=== PATIENT | female | born 1960 | race Caucasian/White ===

== ENCOUNTER 2020-03-04 06:36 | Inpatient (IN) | payer OTHER, SELFPAY ==
[2020-03-04] VITALS (10 sets, daily range): BP systolic 128–173; BP diastolic 60–84; PULSE 64–107; RESP 15–30; TEMP 36.6–36.9; O2SAT 93–100
--- NOTE | 2020-03-04 06:46 | PC.NURSE ---
Patient states she is having pain the back of her head at 6/10. Patient states she fell yesterday and that she fell two times. Patient states she hit her head when she fell. Patient states she does have a history of falls in the past.
--- NOTE | 2020-03-04 06:51 | W.ED.WEAKNES ---
HPI - Weakness General: Chief complaint: Weakness Stated complaint: FELL TWICE Time Seen by Provider: 03/04/20 06:51 History of Present Illness: HPI Narrative: 59-year-old female brought to the emergency room with a complaint of weakness. She has had quite a bit of dizziness lately she came in today because she had fallen she fell and hit the back of her head she thought she blacked out for a short period of time she does not take any blood thinners. The dizziness takes a form of being uneasy and unsteady on her feet she does not have a true vertiginous-like episode. This is been going on for intermittently for a few weeks. She also noted she had black stools. She denies any frankly bloody stools no hematemesis no previous history of GI bleed. MD Complaint: generalized weakness and difficulty walking Onset (ago): week(s) Duration: intermittent Severity: moderate Relieving factors: none Exacerbating factors: exertion Context: trauma/injury Associated symptoms: Reports easy bruising and nausea; Denies chest pain, chills, dark stools, dysuria or fever(s) Review of Systems Const: Denies: fever, chills, body aches, change in appetite, fatigue or malaise ENMT: Denies: throat pain, ear pain, nasal discharge or nasal congestion Card: Denies: chest pain, edema, shortness of breath on exertion or shortness of breath when lying down Resp: Denies: shortness of breath, productive cough or non-productive cough GI: Reports: nausea; Denies: black tarry stool : Denies: flank pain, difficulty urinating, painful urination, urinary frequency or urinary urgency Skin/Breast: Denies: rash or itching Guille/Lymph: Reports: easy bruising [facility] ED PFSH: Medical History Alcohol use disorder, moderate, in controlled environment, dependence Anxiety disorder Family History Mother , in her mid 50s Cancer Nonalcoholic liver cancer due to hepatitis Tuberculosis Father , at age 95 from old age No problems noted. Social History Smoking and tobacco status: former smoker Second hand smoke exposure: Yes Alcohol intake: current Desire information about alcohol rehabilitation?: No Counseling given: Yes Substance/Drug Use: never Lives independently: Yes Household members: spouse Marital status: Number of children: 3 Number of grandchildren: 2 Physical Exam Const: COMMON NORMALS: no apparent distress GENERAL APPEARANCE: cooperative and comfortable ORIENTATION/CONSCIOUSNESS: Yes awake, Yes oriented to person, Yes oriented to place and Yes oriented to time HENMT: COMMON NORMALS: normocephalic, head/scalp atraumatic, hearing grossly normal bilaterally, external ears normal, EAC's normal, TM's normal bilaterally, nasal mucous membranes and turbinates normal, moist oral mucous membranes and oropharynx normal HEAD & SCALP: normocephalic and atraumatic NOSE: nasal mucous membranes and turbinates normal EXTERNAL EAR: Yes external ears normal EXTERNAL AUDITORY CANAL: EAC's normal TYMPANIC MEMBRANE: TM's normal bilaterally Eye: COMMON NORMALS: PERRL, EOMs intact bilaterally, conjunctivae normal and no scleral icterus CONJUNCTIVA: Yes conjunctivae normal PUPIL: Yes PERRL Neck/C-Spine: COMMON NORMALS: full ROM, no lymphadenopathy, supple and no JVD Lymph: LYMPHATIC: no lymphadenopathy noted and no lymphedema noted Resp: COMMON NORMALS: normal respiratory effort, no retractions, no use of accessory muscles and clear to auscultation bilaterally AUSCULTATION: clear to auscultation bilaterally Cardio: COMMON NORMALS: no JVD, regular rate, regular rhythm and no murmurs RATE: regular rate RHYTHM: regular rhythm GI: COMMON NORMALS: soft to palpation and no hepatosplenomegaly AUSCULTATION: Yes normoactive bowel sounds PALPATION: Yes soft, No tender, No guarding and Yes no hepatosplenomegaly RECTAL EXAM: normal sphincter tone and heme positive stool 3+ Extremity: COMMON NORMALS: normal to inspection, normal capillary refill, no clubbing, cyanosis or edema, no calf tenderness and no pedal edema Neuro: SENSORIUM/ORIENTATION: Yes oriented to person, Yes oriented to place and Yes oriented to time Skin: COMMON NORMALS: no rashes or lesions noted GENERAL SKIN EXAM: no rashes or lesions noted Course Vital Signs: Vital signs: Vital Signs Temperature 98.3 F 03/05/20 07:12 Pulse Rate 70 03/05/20 07:29 Respiratory Rate 18 03/05/20 07:12 Blood Pressure 149/70 03/05/20 07:12 Pulse Oximetry 94 03/05/20 07:29 MDM - Weakness MDM Narrative: Medical decision making narrative: Blood alcohol 72. She is previously much higher alcohols and think a lot of her lab abnormalities are related to the alcohol ingestion. Were going to go ahead and admit her. I am concerned with her hemoglobin drops went from 13 5 down to 10 4 she has frankly melanotic stools and may have a continuing upper GI bleed. Discussed with Dr. Ni and. Lab Data: Labs: Lab Results 03/04/20 03/04/20 03/04/20 Range/Units 07:14 07:14 07:14 WBC 5.8 (4.0-10.0) 10^3/ uL RBC 2.99 L (4.1-5.3) 10^6/u L Hgb 10.5 L (11.5-15.3) g/dL Hct 31.8 L (37.0-47.0) % MCV 106.4 H (81-99) fL MCH 35.1 H (28.0-34.0) pg MCHC 33.0 (30.0-36.0) g/dL RDW 13.7 (12.1-15.1) % Plt Count 122 L (130-400) 10^3/c mm MPV 10.0 (7.4-10.4) fL Neut % (Auto) 73.8 % Lymph % (Auto) 9.5 % [place] % (Auto) 13.5 % Eos % (Auto) 0.7 % Baso % (Auto) 1.6 % Neut # (Auto) 4.3 (1.8-7.7) 10^3/u L Lymph # (Auto) 0.6 L (0.8-4.8) 10^3/u L [place] # (Auto) 0.8 (0.2-0.9) 10^3/u L Eos # (Auto) 0.0 (0.0-0.8) 10^3/u L Baso # (Auto) 0.1 (0.0-0.1) 10^3/u L Nucleated RBC % (a uto) 0 % Nucleated RBCs # 0.0 /100WBC Sodium 136 (136-145) mmol/L Potassium 4.5 (3.5-5.1) mmol/L Chloride 91 L (98-107) mmol/L Carbon Dioxide 20 L (22-29) mmol/L Anion Gap 29.5 H (5-19) BUN 14 (8-23) mg/dL Creatinine 0.8 (0.5-0.9) mg/dL GFR Calculation 72.9 L (90-130) mL/min Glucose 103 (65-115) mg/dL Calculated Osmolal ity 278 L (285-295) mOsm/k g Lactate (0.5-2.2) mmol/L Calcium 9.9 (8.5-10.5) mg/dL Phosphorus (2.5-4.5) mg/dL Magnesium (1.7-2.3) mg/dL Total Bilirubin 1.4 H (0.15-1.2) mg/dL AST 268 H (0-32) U/L ALT 122 H (0-33) U/L Alkaline Phosphata se 182 H (35-105) IU/L Ammonia (11-51) umol/L Total Protein 7.7 (6.6-8.7) g/dL Albumin 4.5 (3.5-5.2) g/dL Globulin 3.2 (1.3-4.6) g/dL Lipase 72 H (13-60) U/L TSH (0.27-4.20) uIU/ mL Urine Color (Yellow) Urine Appearance (CLEAR) Urine pH (5-7) Ur Specific Gravit y (1.005-1.030) Urine Protein (Negative) Urine Glucose (UA) (Normal) Urine Ketones (Negative) Urine Blood (Negative) Urine Nitrate (Negative) Urine Bilirubin (NEGATIVE) Urine Urobilinogen (Negative) mg/dL Ur Leukocyte Rosina ase (Negative) Urine RBC (0-2) /hpf Urine WBC (0-5) /hpf Ur Squamous Epith Cells (0-5) Urine Bacteria (NONE) Hyaline Casts Urine Mucus Ethyl Alcohol 72 H (0-10) mg/dL Hepatitis A IgM Ab (Nonreactive) Hep Bs Antigen (Nonreactive) Hep Bs Antibody (0-8.5) Hep B Core Total A b (Nonreactive) Hepatitis C Antibo dy (Nonreactive) 03/04/20 03/04/20 03/04/20 Range/Units 07:14 07:56 09:13 WBC (4.0-10.0) 10^3/ uL RBC (4.1-5.3) 10^6/u L Hgb (11.5-15.3) g/dL Hct (37.0-47.0) % MCV (81-99) fL MCH (28.0-34.0) pg MCHC (30.0-36.0) g/dL RDW (12.1-15.1) % Plt Count (130-400) 10^3/c mm MPV (7.4-10.4) fL Neut % (Auto) % Lymph % (Auto) % [place] % (Auto) % Eos % (Auto) % Baso % (Auto) % Neut # (Auto) (1.8-7.7) 10^3/u L Lymph # (Auto) (0.8-4.8) 10^3/u L [place] # (Auto) (0.2-0.9) 10^3/u L Eos # (Auto) (0.0-0.8) 10^3/u L Baso # (Auto) (0.0-0.1) 10^3/u L Nucleated RBC % (a uto) % Nucleated RBCs # /100WBC Sodium (136-145) mmol/L Potassium (3.5-5.1) mmol/L Chloride (98-107) mmol/L Carbon Dioxide (22-29) mmol/L Anion Gap (5-19) BUN (8-23) mg/dL Creatinine (0.5-0.9) mg/dL GFR Calculation (90-130) mL/min Glucose (65-115) mg/dL Calculated Osmolal ity (285-295) mOsm/k g Lactate (0.5-2.2) mmol/L Calcium (8.5-10.5) mg/dL Phosphorus 4.2 (2.5-4.5) mg/dL Magnesium 2.4 H (1.7-2.3) mg/dL Total Bilirubin (0.15-1.2) mg/dL AST (0-32) U/L ALT (0-33) U/L Alkaline Phosphata se (35-105) IU/L Ammonia (11-51) umol/L Total Protein (6.6-8.7) g/dL Albumin (3.5-5.2) g/dL Globulin (1.3-4.6) g/dL Lipase (13-60) U/L TSH 2.49 (0.27-4.20) uIU/ mL Urine Color Dark yellow (Yellow) Urine Appearance Clear (CLEAR) Urine pH 5 (5-7) Ur Specific Gravit y 1.005 (1.005-1.030) Urine Protein Trace (Negative) Urine Glucose (UA) Norm (Normal) Urine Ketones 2+ H (Negative) Urine Blood 2+ H (Negative) Urine Nitrate Negative (Negative) Urine Bilirubin Neg (NEGATIVE) Urine Urobilinogen 1 H (Negative) mg/dL Ur Leukocyte Rosina ase Negative (Negative) Urine RBC Rare (0-2) /hpf Urine WBC 0-4 H (0-5) /hpf Ur Squamous Epith Cells 0-4 H (0-5) Urine Bacteria Trace (NONE) Hyaline Casts 0-4 H Urine Mucus Trace Ethyl Alcohol (0-10) mg/dL Hepatitis A IgM Ab Non-reactive (Nonreactive) Hep Bs Antigen Non-reactive (Nonreactive) Hep Bs Antibody 3.5 (0-8.5) Hep B Core Total A b Non-reactive (Nonreactive) Hepatitis C Antibo dy Non-reactive (Nonreactive) 03/04/20 03/04/20 Range/Units 09:19 10:22 WBC (4.0-10.0) 10^3/ uL RBC (4.1-5.3) 10^6/u L Hgb (11.5-15.3) g/dL Hct (37.0-47.0) % MCV (81-99) fL MCH (28.0-34.0) pg MCHC (30.0-36.0) g/dL RDW (12.1-15.1) % Plt Count (130-400) 10^3/c mm MPV (7.4-10.4) fL Neut % (Auto) % Lymph % (Auto) % [place] % (Auto) % Eos % (Auto) % Baso % (Auto) % Neut # (Auto) (1.8-7.7) 10^3/u L Lymph # (Auto) (0.8-4.8) 10^3/u L [place] # (Auto) (0.2-0.9) 10^3/u L Eos # (Auto) (0.0-0.8) 10^3/u L Baso # (Auto) (0.0-0.1) 10^3/u L Nucleated RBC % (a uto) % Nucleated RBCs # /100WBC Sodium (136-145) mmol/L Potassium (3.5-5.1) mmol/L Chloride (98-107) mmol/L Carbon Dioxide (22-29) mmol/L Anion Gap (5-19) BUN (8-23) mg/dL Creatinine (0.5-0.9) mg/dL GFR Calculation (90-130) mL/min Glucose (65-115) mg/dL Calculated Osmolal ity (285-295) mOsm/k g Lactate 3.1 H (0.5-2.2) mmol/L Calcium (8.5-10.5) mg/dL Phosphorus (2.5-4.5) mg/dL Magnesium (1.7-2.3) mg/dL Total Bilirubin (0.15-1.2) mg/dL AST (0-32) U/L ALT (0-33) U/L Alkaline Phosphata se (35-105) IU/L Ammonia 22 (11-51) umol/L Total Protein (6.6-8.7) g/dL Albumin (3.5-5.2) g/dL Globulin (1.3-4.6) g/dL Lipase (13-60) U/L TSH (0.27-4.20) uIU/ mL Urine Color (Yellow) Urine Appearance (CLEAR) Urine pH (5-7) Ur Specific Gravit y (1.005-1.030) Urine Protein (Negative) Urine Glucose (UA) (Normal) Urine Ketones (Negative) Urine Blood (Negative) Urine Nitrate (Negative) Urine Bilirubin (NEGATIVE) Urine Urobilinogen (Negative) mg/dL Ur Leukocyte Rosina ase (Negative) Urine RBC (0-2) /hpf Urine WBC (0-5) /hpf Ur Squamous Epith Cells (0-5) Urine Bacteria (NONE) Hyaline Casts Urine Mucus Ethyl Alcohol (0-10) mg/dL Hepatitis A IgM Ab (Nonreactive) Hep Bs Antigen (Nonreactive) Hep Bs Antibody (0-8.5) Hep B Core Total A b (Nonreactive) Hepatitis C Antibo dy (Nonreactive) Discharge Plan Discharge Patient Disposition: Admitted As Inpatient Admit Provider: Froilan Chu Clinical Impression: Anemia, Acute upper GI bleed, Alcohol use disorder, moderate, in controlled environment, dependence Condition: Stable Interventions: ED Discharge Assessment Last Done: 03/04/20 12:09 Discharge Date/Time: 03/04/20 11:50 Coding Level of Care Code ED Blanket Cutter Hand for Sunnyg Fwd Exam Comprehensive
--- NOTE | 2020-03-04 07:03 | XR_ITS ---
WS: [id number] CHEST XRAY TECHNIQUE: Portable chest. CLINICAL INFORMATION: dyspnea/cough COMPARISON: None. FINDINGS: Heart: Normal cardiac silhouette. Lungs: Lungs are clear. No consolidation or pleural effusion. Mild chronic emphysematous changes. Bones: Normal visualized bony structures. XR/XR chest 1V portable [id number] IMPRESSION: No acute chest findings
--- NOTE | 2020-03-04 07:03 | CTR_ITS ---
PROCEDURE INFORMATION: Exam: CT Head Without Contrast Exam date and time: 03/04/2020 7:08 AM Age: 59 years old Clinical indication: Injury or trauma; Fall; Initial encounter; Blunt trauma (contusions or hematomas); With loss of consciousness; Loss of consciousness for 30 minutes or less; Additional info: Closed head injury with loss of consciousness TECHNIQUE: Imaging protocol: Computed tomography of the head without contrast. Total DLP: 863.42 mGy-cm Radiation optimization: All CT scans at this facility use at least one of these dose optimization techniques: automated exposure control; mA and/or kV adjustment per patient size (includes targeted exams where dose is matched to clinical indication); or iterative reconstruction. COMPARISON: CT head wo con* [id number] 04/10/2019 11:09 AM FINDINGS: Brain: No hemorrhage. No edema, mass effect or midline shift. Morris-white matter differentiation is preserved. Periventricular and deep white matter hypodensities compatible with chronic microvascular ischemic changes. Ventricles: No ventriculomegaly. Bones/joints: No acute fracture. Sinuses: No acute sinusitis. Mastoid air cells: No mastoid effusion. Soft tissues: Large occipital scalp hematoma. CT/CT head wo con* [id number] IMPRESSION: No acute intracranial abnormality. Large occipital scalp hematoma. Radiation Dose CTDIVOL = (mGy): DLP = 863.42 (mGy-cm)
--- NOTE | 2020-03-04 07:19 | PC.NURSE ---
pt to CT by stretcher with tech
[2020-03-04 07:20] LABS: Basophils # 0.1 10^3/uL (0.0-0.1); Basophils % 1.6 %; Eosinophils % 0.7 %; Hematocrit 31.8 % (37.0-47.0); Hemoglobin 10.5 g/dL (11.5-15.3); Lymphocytes # 0.6 10^3/uL (0.8-4.8); Lymphocytes % 9.5 %; Mean Corpuscular Hemoglobin 35.1 pg (28.0-34.0); Mean Corpuscular Volume 106.4 fL (81-99); Monocytes # 0.8 10^3/uL (0.2-0.9); Monocytes % 13.5 %; Neutrophils # 4.3 10^3/uL (1.8-7.7); Neutrophils % 73.8 %; Nucleated Red Blood Cells % 0 %; Platelet Count 122 10^3/cmm (130-400); Red Blood Count 2.99 10^6/uL (4.1-5.3); Red Cell Distribution Width 13.7 % (12.1-15.1); White Blood Count 5.8 10^3/uL (4.0-10.0)
[2020-03-04] MEDS: LORazepam 2 mg/mL INJ 1 mL 0.5 MG IVP (07:37)
[2020-03-04 07:38] LABS: Alanine Aminotransferase 122 U/L (0-33); Albumin Level 4.5 g/dL (3.5-5.2); Alkaline Phosphatase 182 IU/L (35-105); Anion Gap 29.5 (5-19); Aspartate Amino Transferase 268 U/L (0-32); Blood Urea Nitrogen 14 mg/dL (8-23); Calcium 9.9 mg/dL (8.5-10.5); Carbon Dioxide 20 mmol/L (22-29); Chloride 91 mmol/L (98-107); Globulin 3.2 g/dL (1.3-4.6); Glomerular Filtration Rate 72.9 mL/min (90-130); Glucose 103 mg/dL (65-115); Lipase 72 U/L (13-60); Osmolality Calculated 278 mOsm/kg (285-295); Potassium 4.5 mmol/L (3.5-5.1); Sodium 136 mmol/L (136-145); Total Bilirubin 1.4 mg/dL (0.15-1.2); Total Protein 7.7 g/dL (6.6-8.7)
--- NOTE | 2020-03-04 07:43 | US_ITS ---
WS: [id number] ULTRASOUND ABDOMEN LIMITED CLINICAL INFORMATION: elevated liver enzymes COMPARISON: None. FINDINGS: Liver Size: Enlarged Craniocaudal length: 18.9 cm. Echogenicity: Fatty infiltration Surface nodularity: None. Mass (size and location): None. Bile ducts Intrahepatic ducts: Normal. Common bile duct diameter: 0.3 cm. Gallbladder Normal. Gallstones: None. Gallbladder sludge: None. Gallbladder wall thickening: None. Pericholecystic fluid: None. Sonographic Gomez sign: Absent. Pancreas Normal as visualized. Right kidney: Normal. Hydronephrosis: None. Size: 11.1 cm x 5.0 cm x 4.9 cm. Abdominal aorta and IVC Visualized portions are normal. Ascites: None. US/US gall bladder [id number] IMPRESSION: 1. Hepatomegaly with diffuse fatty infiltration. 2. Normal gallbladder and common bile duct. 3. No hydronephrosis in the right kidney.
--- NOTE | 2020-03-04 07:43 | CT_ITS ---
WS: [id number] CT ABDOMEN PELVIS TECHNIQUE: Contrast-enhanced CT of the abdomen and pelvis with coronal and sagittal reformatted image s. CLINICAL INFORMATION: abd pain COMPARISON: None. DLP: 516.[address] scans at [facility] use at least one of these dose optimization techniques: automat ed exposure control; mA and/or kV adjustment per patient size (includes targeted exams where dose is matched to clinical indication); or iterative reconstruction. FINDINGS: Diffuse fatty infiltration of the liver. Normal portal vein and splenic vein. Gallbladder is contract ed with some wall enhancement. No pericholecystic fluid. Normal spleen. Normal GE junction. Adrenal g lands are normal. Normal renal parenchymal enhancement. Bronchiectasis right middle lobe lobe. Lung bases are well aerated. Mild aortic calcification. Right ovarian cyst measuring 1.5 CM. Mild lumbar curve convex left. No periaortic lymphadenopathy. No inguinal lymphadenopathy. Normal caliber small and large bowel. Attempted notification Lukas Horan DO at 03/04/2020 8:[address]/CT abdomen pelvis w con* [id number] IMPRESSION: 1. Diffuse fatty infiltration of the liver. 2. Normal renal parenchymal enhancement. No hydronephrosis. 3. Gallbladder is contracted with peripheral enhancement although no perichole cystic fluid or inflammatory stranding. Gallbladder can be further evaluated wi th ultrasound. 4. Normal caliber abdominal aorta. 5. Right ovarian cyst measuring 1.5 CM. No free fluid in the pelvis. 6. No evidence of small or large bowel obstruction.
--- NOTE | 2020-03-04 08:00 | PC.NURSE ---
portable ultrasound at bedside.
[2020-03-04] MEDS: iohexol 300 mg/mL 100 mL Btl IV (08:10)
[2020-03-04 08:56] LABS: Hepatitis A Antibody IgM. Non-Reactive (Nonreactive); Hepatitis B Surface AB. 3.5 (0-8.5); Hepatitis B Surface Antigen. Non-Reactive (Nonreactive); Hepatitis C Virus Antibody Non-Reactive (Nonreactive)
[2020-03-04] MEDS: sodium chloride 0.9% 1,000 ML 999 ML IV (09:36)
[2020-03-04 09:39] LABS: Lactate (Lactic Acid level) 3.1 mmol/L (0.5-2.2)
[2020-03-04 10:06] LABS: Blood Urine 2+ (Negative); Glucose Urine UA Norm (Normal); Ketones Urine 2+ (Negative); Nitrate Urine Negative (Negative); Protein Urine Trace (Negative); Specific Gravity, Urine 1.005 (1.005-1.030); Urine Appearance Clear (CLEAR); Urine Color Dark Yellow (Yellow); pH Urine 5 (5-7)
[2020-03-04 10:07] LABS: Add Urine Microscopic? YES; Bilirubin Urine Neg (NEGATIVE); Leukocyte Esterase Urine Negative (Negative); Urobilinogen Urine 1 mg/dL (Negative)
[2020-03-04 10:08] LABS: Add Urine Culture? No; Bacteria Urine TRACE; Hyaline Casts Urine 0-4; Mucus Urine TRACE; RBC Urine RARE /hpf (0-2); Squamous Epithelial Cell Urine 0-4 (0-5); WBC Urine 0-4 /hpf (0-5)
[2020-03-04 10:49] LABS: Alcohol Level 72 mg/dL (0-10)
[2020-03-04 11:21] LABS: Ammonia 22 umol/L (11-51)
--- NOTE | 2020-03-04 11:22 | P.HP_ITS ---
Providers/Chief Complaint Admitting Physician: Froilan Chu MD Chief Complaint: UPPER GI BLEED History of Present Illness Fanny Stauffer is a 59 year old female presents emergency department after she had 2 falls last night 1 at 1 AM and second 1 at 5 AM. Both I am patient reports falling backwards and hitting back of her head on a wooden floor. She has large occipital area hematoma. She admits to being an alcoholic and drinking too much . She reports drinking 4 teacup glasses of wine daily. She buys them in boxes. She had DUI long time ago with her child in the vehicle and reports that she required rehabilitation as well as frequent AA meetings and did well and state alcohol free for 20 years. Reports that her daughter got 3 years ago and she started drinking and gradually increasing amount of alcohol she consumes. 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 Reports that because of frequent falls she cannot even ride her horses anymore. She lives there with her . Reports that last night she started having extensive melanotic diarrhea requiring her to run to the bathroom ultimately resulting in 2 falls mentioned above. She reports frequent falls in the last several months. 2 months ago she injured her hip and since then has been having recurrent pain. Reports that she is trying to limit amount of ibuprofen she takes because it hurts my stomach . She reports significant withdrawal symptoms when she stops drinking alcohol. Reports being diaphoretic and tremulous as well as somewhat confused. Denies seizures. She denies any previous history of diabetes, heart disease or stroke. In emergency department patient was found to have hemoglobin 10.5 which is down from 13.[address] approximately [address] Kerns performed rectal exam with evidence of melanotic stool which was positive for occult blood. Patient's lab work highly indicative of significant alcohol consumption including liver enzyme elevation, thrombocytopenia and macrocytosis. Abdominal CT showed diffuse fatty infiltration of the liver but otherwise no significant/acute findings. Head CT showed large occipital scalp hematoma but no acute intracranial abnormality. Review of Systems Narrative: Except as mentioned above. Const: Denies: fever or chills (But reports always being cold.) Eyes: Denies: change in vision ENMT: Denies: throat pain or change in hearing Card: Denies: chest pain, edema or lightheadedness Resp: Denies: shortness of breath or productive cough GI: Reports: nausea, difficulty swallowing (Reports frequently having episodes of food stuck in her throat whenever she swallows.), diarrhea and black tarry stool; Denies: abdominal pain, vomiting, constipation or blood in stool : Denies: difficulty urinating Musc: Reports: joint pain (Right hip as mentioned.); Denies: joint swelling Skin/Breast: Denies: rash or redness Neuro: Reports: frequent falls; Denies: headache (Unless pressure is applied to back of her head), weakness in extremities, vertigo, difficulty communicating thoughts or seizure-like activity Psych: Reports: anxiety; Denies: depression or suicidal ideation Endo: Denies: excessive sweating Guille/Lymph: Denies: easy bleeding or tender lymph nodes All/Imm: Denies: throat swelling Medications/Allergies Home Medications Medication Instructions Recorded Confirmed Last Taken Type No Known Home Medications 03/04/20 03/04/20 Unknown History Allergies Allergy/AdvReac Type Severity Reaction Status Date / Time Penicillins Allergy ALGY-Hives Verified 03/04/20 06:49 PFSH Acute PFSH: Medical History (Updated 03/04/20 @ 12:17 by Froilan Chu MD) Alcohol use disorder, moderate, in controlled environment, dependence Anxiety disorder Family History (Updated 03/04/20 @ 12:12 by Froilan Chu MD) Mother , in her mid 50s Cancer Nonalcoholic liver cancer due to hepatitis Tuberculosis Father , at age 95 from old age No problems noted. Social History (Updated 03/04/20 @ 12:13 by Froilan Chu MD) Smoking and tobacco status: former smoker Second hand smoke exposure: Yes Alcohol intake: current Desire information about alcohol rehabilitation?: No Counseling given: Yes Substance/Drug Use: never Lives independently: Yes Household members: spouse Marital status: Number of children: 3 Number of grandchildren: 2 Vitals/I&O/Wt Last Vital Signs Temp 97.9 F 03/04/20 06:44 Pulse 84 03/04/20 11:00 Resp 15 03/04/20 11:00 BP 138/84 03/04/20 11:00 Pulse Ox 97 03/04/20 11:00 Weight last 48 hrs Weight 54.431 kg Physical Exam Const: COMMON NORMALS: no apparent distress, oriented x3 and alert GENERAL APPEARANCE: well kempt and well developed; not diaphoretic and no odor of alcohol detected OTHER: Has mild generalized tremor. HENMT: COMMON NORMALS: normocephalic and head/scalp atraumatic HEAD & SCALP: normocephalic and atraumatic Eye: COMMON NORMALS: EOMs intact bilaterally, conjunctivae normal and no scleral icterus CONJUNCTIVA: Yes conjunctivae normal Neck/C-Spine: COMMON NORMALS: no lymphadenopathy and no meningeal signs Lymph: LYMPHATIC: no lymphadenopathy noted Chest: COMMONS NORMALS: palpation of chest normal Resp: COMMON NORMALS: no use of accessory muscles and clear to auscultation bilaterally AUSCULTATION: clear to auscultation bilaterally Cardio: COMMON NORMALS: regular rate, regular rhythm and no murmurs RATE: regular rate RHYTHM: regular rhythm OTHER: No lower extremity edema GI: COMMON NORMALS: soft to palpation and non-tender PALPATION: Yes soft RECTAL EXAM: deferred : COMMON NORMALS: Yes no CVA tenderness BLADDER/KIDNEY EXAM: Yes no CVA tenderness Back/Pelvis: COMMON NORMALS: no CVA tenderness and thoracic and lumbar spine normal to inspection Extremity: COMMON NORMALS: normal to inspection and normal capillary refill Neuro: COMMON NORMALS: oriented x3 and no focal motor deficits SENSORIUM/ORIENTATION: Yes alert MENINGEAL SIGNS: Yes no meningeal signs OTHER: Has mild bilateral tremor but otherwise no evidence of ataxia. Normal shoulder shrug and no pronator drift. No focal neurological findings. No pe ripheral vision deficit on individual eye check. Psych: COMMON NORMALS: mental status grossly normal, thought process normal and cooperative THOUGHT PROCESS: normal thought process Skin: COMMON NORMALS: no rashes or lesions noted GENERAL SKIN EXAM: no rashes or lesions noted Data : 03/04/20 07:14 03/04/20 07:14 Micro: Microbiology 03/04/20 10:14 Blood Culture - Preliminary Blood SPECIMEN COLLECTED 03/04/20 09:19 Blood Culture - Preliminary Blood SPECIMEN COLLECTED A&P Assessment and plan (1) Acute upper GI bleed: Status: Acute (2) Alcohol use disorder, moderate, in controlled environment, dependence: Likely the reason of thrombocytopenia, macrocytosis and elevated liver enzymes Status: Acute (3) Frequent falls: Status: Acute (4) Anxiety disorder: Status: Acute (5) Anemia: Status: Acute (6) Concern about peptic ulcer disease without diagnosis: This appears to be NSAIDs and alcohol induced Status: Acute Additional A&P Information We will treat patient with IV fluids and high-dose Protonix. Discussed regarding importance of alcohol abstinence and patient voiced understanding. She thinks she can quit drinking but does not appear to be interested in inpatient rehabilitation. Will start patient on standing dose Librium and start CIWA protocol. Check phosphorus and magnesium level. Discussed regarding importance to stay away from smoking. Obtain right hip x-ray to further evaluate her pain. Monitor hemoglobin and consider upper endoscopy if continues to decrease. Patient is hemodynamically stable therefore I think it is safe to admit patient to medical shaw on close telemetry monitoring. Attestations Medical Necessity Statement*: Patient with upper GI bleed and alcohol use disorder with frequent falls requires close inpatient monitoring, treatment and evaluation. I expect patient will require more than 2 midnights. Coding Level of Care Code Acute Return To Factory Clerk for Anup Martinez Diagnoses Acute upper GI bleed K92.2 Alcohol use disorder, moderate, in controlled environment, dependence F10.20 Frequent falls R29.6 Anxiety disorder F41.9 Anemia D64.9 Concern about peptic ulcer disease without diagnosis Z71.1
--- NOTE | 2020-03-04 11:26 | PC.NURSE ---
report called to charge nurse
--- NOTE | 2020-03-04 11:45 | PC.NURSE ---
unable to transfer pt. due to waiting on registration
--- NOTE | 2020-03-04 12:26 | XR_ITS ---
WS: [id number] HIP RIGHT TECHNIQUE: 1 view of the right hip CLINICAL INFORMATION: Pain post fall COMPARISON: None. FINDINGS: Right femoral neck is normal in appearance. Normal greater and lesser trochanter. No evidence of acut e fracture dislocation. XR/XR hip RT 1V wo/w pel [id number] IMPRESSION: Normal right hip. No acute fractures.
[2020-03-04] MEDS: dextrose 5%-sod chloride 0.45% 1,000 ML 100 ML IV (12:28)
[2020-03-04] MEDS: pantoprazole 40 mg SDV IVP ×2 (12:39→23:58)
[2020-03-04] MEDS: folic acid 1 mg Tablet PO (13:07)
[2020-03-04] MEDS: chlordiazePOXIDE 25 mg Capsule PO ×3 (13:07→23:58)
[2020-03-04] MEDS: multivitamin therapeutic Tablet 1 TAB PO (13:08)
[2020-03-04] MEDS: lactated ringers 1,000 ML 50 ML IV (13:08)
[2020-03-04] MEDS: thiamine 100 mg Tablet PO (13:08)
[2020-03-04 13:26] LABS: Magnesium 2.4 mg/dL (1.7-2.3); Phosphorus 4.2 mg/dL (2.5-4.5); Thyroid Stimulating Hormone 2.49 uIU/mL (0.27-4.20)
[2020-03-05] MEDS: lactated ringers 1,000 ML 50 ML IV (01:58)
[2020-03-05 04:00] VITALS: BP 153/77; PULSE 73; RESP 18; TEMP 36.9; O2SAT 100
[2020-03-05 05:23] LABS: Basophils # 0.1 10^3/uL (0.0-0.1); Basophils % 1.5 %; Eosinophils # 0.1 10^3/uL (0.0-0.8); Eosinophils % 2.8 %; Hematocrit 25.9 % (37.0-47.0); Hemoglobin 8.4 g/dL (11.5-15.3); Lymphocytes # 0.5 10^3/uL (0.8-4.8); Lymphocytes % 13.8 %; Mean Corpuscular HGB Conc 32.4 g/dL (30.0-36.0); Mean Corpuscular Hemoglobin 35.6 pg (28.0-34.0); Mean Corpuscular Volume 109.7 fL (81-99); Mean Platelet Volume 10.4 fL (7.4-10.4); Monocytes # 0.5 10^3/uL (0.2-0.9); Monocytes % 16.3 %; Neutrophils # 2.1 10^3/uL (1.8-7.7); Neutrophils % 64.7 %; Nucleated Red Blood Cells % 0 %; Platelet Count 100 10^3/cmm (130-400); Red Blood Count 2.36 10^6/uL (4.1-5.3); Red Cell Distribution Width 14.1 % (12.1-15.1); White Blood Count 3.3 10^3/uL (4.0-10.0)
[2020-03-05 05:32] LABS: Partial Thromboplastin Time 29.9 SECONDS (23.9-36.7)
[2020-03-05 05:51] LABS: Alanine Aminotransferase 90 U/L (0-33); Albumin Level 3.8 g/dL (3.5-5.2); Alkaline Phosphatase 138 IU/L (35-105); Aspartate Amino Transferase 148 U/L (0-32); Blood Urea Nitrogen 12 mg/dL (8-23); Calcium 9.3 mg/dL (8.5-10.5); Carbon Dioxide 23 mmol/L (22-29); Chloride 98 mmol/L (98-107); Globulin 2.3 g/dL (1.3-4.6); Glomerular Filtration Rate 72.9 mL/min (90-130); Glucose 91 mg/dL (65-115); Magnesium 2.2 mg/dL (1.7-2.3); Osmolality Calculated 282 mOsm/kg (285-295); Phosphorus 3.1 mg/dL (2.5-4.5); Sodium 138 mmol/L (136-145); Total Bilirubin 1.3 mg/dL (0.15-1.2); Total Protein 6.1 g/dL (6.6-8.7)
[2020-03-05] MEDS: chlordiazePOXIDE 25 mg Capsule PO ×3 (06:02→19:29)
[2020-03-05 07:12] VITALS: BP 149/70; PULSE 79; RESP 18; TEMP 36.8; O2SAT 99
[2020-03-05 07:29] VITALS: PULSE 70; O2SAT 94
[2020-03-05] MEDS: cyanocobalamin 1,000 mcg/mL SDV 1000 MCG IM (09:01)
[2020-03-05] MEDS: multivitamin therapeutic Tablet 1 TAB PO (09:02)
[2020-03-05] MEDS: folic acid 1 mg Tablet PO (09:02)
[2020-03-05] MEDS: thiamine 100 mg Tablet PO (09:02)
--- NOTE | 2020-03-05 11:26 | P.PN_ITS ---
Subjective Subjective: Interval history: Patient reports doing much better. Denies any nausea or abdominal pain. She had bowel movement earlier today without evidence of melena or hematochezia. Reports that her stool was not black anymore. Reports tolerating clear liquid diet well and wants to advance diet. Her hemoglobin declined down to 8.4 along with platelets which appeared to be consu mptive in addition to alcohol related thrombocytopenia. WBC slightly down and this all likely related to alcohol use. Her vitals otherwise stable and liver enzymes are trending down. She was noted to have increasing MCV and had evidence of vitamin B12 deficiency. Reports that her tremors slightly better compared to yesterday and overall she feels well and wants to go home. She is not interested in any inpatient rehabilitation. Vitals/I&O/Wt Last Vital Signs Temp 98.3 F 03/05/20 07:12 Pulse 70 03/05/20 07:29 Resp 18 03/05/20 07:12 BP 149/70 03/05/20 07:12 Pulse Ox 94 03/05/20 07:29 03/04/20 03/05/20 03/05/20 22:59 06:59 14:59 Intake Total 360 / 360 542.5 / 902.5 120 / 120 Output Total 0 / 0 200 / 200 Balance 360 / 360 342.5 / 702.5 120 / 120 Weight last 48 hrs Weight 54.431 kg Physical Exam Const: COMMON NORMALS: no apparent distress and oriented x3 Resp: COMMON NORMALS: normal respiratory effort and clear to auscultation bilaterally AUSCULTATION: clear to auscultation bilaterally Cardio: COMMON NORMALS: regular rate, regular rhythm and S2 normal heart sound RATE: regular rate RHYTHM: regular rhythm HEART SOUNDS: S2 normal OTHER: No lower extremity edema GI: COMMON NORMALS: normal to inspection, nondistended, normoactive bowel sounds, soft to palpation and non-tender PALPATION: Yes soft Neuro: COMMON NORMALS: oriented x3 and no focal motor deficits Data : 03/05/20 04:21 03/05/20 04:21 Micro: Microbiology 03/04/20 10:14 Blood Culture - Preliminary Blood NEGATIVE TO DATE 03/04/20 09:19 Blood Culture - Preliminary Blood NEGATIVE TO DATE 03/05/20 02:47 Occult Blood (FIT) - Final Stool - Stool Aspirate A&P Assessment and plan (1) Acute upper GI bleed: Status: Acute (2) Alcohol use disorder, moderate, in controlled environment, dependence: Likely the reason of thrombocytopenia, macrocytosis and elevated liver enzymes Status: Acute (3) Frequent falls: Status: Acute (4) Anxiety disorder: Status: Acute (5) Anemia: Status: Acute (6) Concern about peptic ulcer disease without diagnosis: This appears to be NSAIDs and alcohol induced Status: Acute (7) Vitamin B12 deficiency: Status: Acute Additional A&P Information Discontinue IV fluids and advance patient's diet. Continue high-dose PPI. Decrease Librium to every 8 hours. Continue with physical therapy Start vitamin B12 injections while patient is hospitalized. Monitor CBC and CMP. Attestations Medical Necessity Statement*: Patient with alcohol use disorder as well as GI bleed requires close inpatient monitoring and treatment until deemed safe for discharge. Coding Level of Care Code Acute Housing Quality Standard Inspector for [facility] Fwd Exam Detailed Diagnoses Acute upper GI bleed K92.2 Alcohol use disorder, moderate, in controlled environment, dependence F10.20 Frequent falls R29.6 Anxiety disorder F41.9 Anemia D64.9 Concern about peptic ulcer disease without diagnosis Z71.1 Vitamin B12 deficiency E53.8
--- NOTE | 2020-03-05 11:42 | PC.CHAP ---
Pastoral Care Encounter/Spiritual Assessment Type of Contact [] Declined electrical design technician visit [] Patient/Family/Request visit [] Outpatient visit [] Follow-up visit [] Physician referral [] Code/Alert [X] Routine visit [] Staff referral [] Actively dying [] Patient sleeping [] Family support [] [] Out of room [] Palliative care [] [] Receiving care in room [] Pre-surgical visit [] Trauma [] Long length of stay [] ICU visit [] Other: Relational/Emotional Strength [] Patient feels connected with others/family/visitors/staff [] Distress [] Loneliness/isolation [] Abandonment Spirituality of Patient [] Person of Jen [] Attends Sikhism of their Jen [] Believes in Prayer [] Reads Bible or Church materials [] There are Spiritual issues to be addressed Interior Horticulturist Interventions [] Prayer [] Active listening [] Non-anxious presence [] Spiritual/emotional support [] Crisis/trauma care [] Spiritual counseling [] Bereavement support [] Provided bereavement packet [] Provided Bible/devotional materials [] Provided toy/stuffed animal, coloring book to patient or family member [] Provided Communion [] Anointing/[place] [] Salvation [] Completed spiritual assessment [] Other: Impact on Illness or Injury [] Angry [] Fearful [] Anxious [] Often cries [] Exhaustion [] Unable to work [] Unable to attend jain [] Unable to walk/stand [] Unable to read [] Unable to drive [] Unable to eat/drink [] Unable to sleep [] Unable to be with family [] Patient intubated [] Other: Summary HAD PLEASANT VISIT, WANTS FUTURE VISITS Time spent with patient
[2020-03-05 12:00] VITALS: BP 170/94; PULSE 99; RESP 17; TEMP 36.6; O2SAT 99
[2020-03-05] MEDS: pantoprazole 40 mg SDV IVP (13:02)
[2020-03-05 15:55] VITALS: BP 147/66; PULSE 74; RESP 18; TEMP 37.1; O2SAT 97
[2020-03-05 19:31] VITALS: BP 127/72; PULSE 75; RESP 18; TEMP 36.7; O2SAT 96
[2020-03-06] VITALS: BP 131/78; PULSE 72; RESP 18; TEMP 37; O2SAT 97
[2020-03-06] MEDS: pantoprazole 40 mg SDV IVP (01:23)
[2020-03-06 04:00] VITALS: BP 162/94; PULSE 91; RESP 18; TEMP 36.8; O2SAT 97
[2020-03-06] MEDS: chlordiazePOXIDE 25 mg Capsule PO (04:24)
[2020-03-06 05:34] LABS: Basophils # 0.1 10^3/uL (0.0-0.1); Basophils % 1.3 %; Eosinophils # 0.2 10^3/uL (0.0-0.8); Eosinophils % 6.1 %; Hematocrit 24.5 % (37.0-47.0); Hemoglobin 8.1 g/dL (11.5-15.3); Lymphocytes # 0.5 10^3/uL (0.8-4.8); Lymphocytes % 11.6 %; Mean Corpuscular HGB Conc 33.1 g/dL (30.0-36.0); Mean Corpuscular Volume 111.9 fL (81-99); Mean Platelet Volume 10.5 fL (7.4-10.4); Monocytes # 0.5 10^3/uL (0.2-0.9); Monocytes % 12.2 %; Neutrophils # 2.7 10^3/uL (1.8-7.7); Nucleated Red Blood Cells % 0 %; Platelet Count 130 10^3/cmm (130-400); Red Blood Count 2.19 10^6/uL (4.1-5.3); Red Cell Distribution Width 13.9 % (12.1-15.1)
[2020-03-06 05:53] LABS: Alanine Aminotransferase 80 U/L (0-33); Albumin Level 3.5 g/dL (3.5-5.2); Alkaline Phosphatase 127 IU/L (35-105); Anion Gap 15.8 (5-19); Blood Urea Nitrogen 7 mg/dL (8-23); Calcium 9.2 mg/dL (8.5-10.5); Carbon Dioxide 25 mmol/L (22-29); Chloride 101 mmol/L (98-107); Globulin 2.3 g/dL (1.3-4.6); Glomerular Filtration Rate 85.1 mL/min (90-130); Glucose 116 mg/dL (65-115); Osmolality Calculated 283 mOsm/kg (285-295); Potassium 3.8 mmol/L (3.5-5.1); Sodium 138 mmol/L (136-145); Total Bilirubin 1.1 mg/dL (0.15-1.2); Total Protein 5.8 g/dL (6.6-8.7)
[2020-03-06 05:54] LABS: Phosphorus 2.9 mg/dL (2.5-4.5)
[2020-03-06 05:57] LABS: Aspartate Amino Transferase 120 U/L (0-32)
[2020-03-06 07:25] VITALS: BP 143/78; PULSE 83; RESP 16; TEMP 36.7; O2SAT 100
--- NOTE | 2020-03-06 08:07 | PM.DCS ---
Discharge Providers Date of Admission: 03/04/20 10:38 Date of Discharge: March 06, 2020 Attending Provider at Admission: Froilan Chu MD Attending Provider at Discharge: Froilan Chu MD Primary Care Provider: DOCTOR NOT ON FILE Diagnoses at Discharge Discharge Diagnosis (1) Acute upper GI bleed: Status: Acute (2) Alcohol use disorder, moderate, in controlled environment, dependence: Status: Acute (3) Frequent falls: Status: Acute (4) Anxiety disorder: Status: Acute (5) Anemia: Status: Acute (6) Concern about peptic ulcer disease without diagnosis: Status: Acute (7) Vitamin B12 deficiency: Status: Acute (8) Vitamin B12 deficiency: Status: Acute Reason for Visit Reason for Visit: Reason For Visit: UPPER GI BLEED Hospital Course Discharge Summary: Patient presents with frequent falls and signs and symptoms of upper GI bleed which felt to be related to alcohol induced gastritis. Patient was admitted and treated with IV fluids and high-dose Protonix as well as Librium with as needed Ativan and gradually improved. This morning patient reports improved appetite and oral intake and wants to go home. She got episodes of anxiety last night and received Ativan therefore I will increase patient's Librium dose to 50 mg 3 times daily instead of 25 and gradually taper. Patient had no more episodes of melanotic stool and her last bowel movement was brown in color. She denies nausea. Denies abdominal pain, chest pain or shortness of breath. She is not interested in alcohol rehabilitation but reports that she is going to definitely quit. Reports that her got rid of all alcohol in the house. I have discussed with Dr. Roman and patient will need to call his office tomorrow to set up appointment for upper endoscopy/colonoscopy for further evaluation of anemia. Patient was told to discuss with primary care physician for TAPE EDGE MACHINE OPERATOR examination as well as B12 injections as part of anemia work-up. We will dismiss on oral B12 for now. Injections may be difficult to arrange during current pandemic situation. Patient is adamantly wants to be dismissed home today although it was recommended to continue inpatient monitoring until hemoglobin is not trending down. Given resolution of melanotic stools as well as low BUN numbers clinically significant GI bleed felt unlikely. Patient anemia is likely multifactorial with B12 deficiency and hemodilution also playing a role. I will request CBC check in couple days with results sent to primary care physician. This morning patient is eating her breakfast without difficulty. Denies nausea. Physical Exam Const: COMMON NORMALS: no apparent distress and oriented x3 Resp: COMMON NORMALS: normal respiratory effort and clear to auscultation bilaterally AUSCULTATION: clear to auscultation bilaterally Cardio: COMMON NORMALS: regular rate, regular rhythm and S2 normal heart sound RATE: regular rate RHYTHM: regular rhythm HEART SOUNDS: S2 normal OTHER: No lower extremity edema GI: COMMON NORMALS: normal to inspection, nondistended, normoactive bowel sounds, soft to palpation and non-tender PALPATION: Yes soft Neuro: COMMON NORMALS: oriented x3 and no focal motor deficits Discharge Data Data Completed and Pending: Completed Studies During Hospitalization Category Date Time Status CT abdomen pelvis w con* [id number] Stat Cat Scan 03/04/20 07:[address] head wo con* 7 [id number] Stat Cat Scan 03/04/20 07:03 Completed XR chest 1V shona ble [id number] Stat Exams 03/04/20 07:03 Completed XR hip RT 1V wo/w pel [id number] Routine Exams 03/04/20 12:26 Completed US gall bladder 7 [id number] Stat Ultrasound 03/04/20 07:43 Completed Pending at discharge Category Date Time Status Blood Culture Sta t Lab 03/04/20 10:14 Results Complete Blood Co unt w/Auto AM LABS Lab 03/07/20 04:00 Ordered Comprehensive Met abolic Panel AM LA BS Lab 03/07/20 04:00 Ordered Magnesium AM LABS Lab 03/07/20 04:00 Ordered Phosphorus AM LAB S Lab 03/07/20 04:00 Ordered Labs from last 24 hours 03/06/20 03/06/20 03/06/20 05:00 05:00 05:00 WBC 4.0 RBC 2.19 L Hgb 8.1 L Hct 24.5 L MCV 111.9 H MCH 37.0 H MCHC 33.1 RDW 13.9 Plt Count 130 MPV 10.5 H Neut % (Auto) 68.0 Lymph % (Auto) 11.6 [place] % (Auto) 12.2 Eos % (Auto) 6.1 Baso % (Auto) 1.3 Neut # (Auto) 2.7 Lymph # (Auto) 0.5 L [place] # (Auto) 0.5 Eos # (Auto) 0.2 Baso # (Auto) 0.1 Nucleated RBC % (a uto) 0 Nucleated RBCs # 0.0 Sodium 138 Potassium 3.8 Chloride 101 Carbon Dioxide 25 Anion Gap 15.8 BUN 7 L Creatinine 0.7 GFR Calculation 85.1 L Glucose 116 H Calculated Osmolal ity 283 L Calcium 9.2 Phosphorus 2.9 Magnesium 2.0 Total Bilirubin 1.1 AST 120 H ALT 80 H Alkaline Phosphata se 127 H Total Protein 5.8 L Albumin 3.5 Globulin 2.3 Vitals: Last Vital Signs Temp 98.1 F 03/06/20 07:25 Pulse 83 03/06/20 07:25 Resp 16 03/06/20 07:25 BP 143/78 03/06/20 07:25 Pulse Ox 100 03/06/20 07:25 Discharge Plan Discharge Patient Disposition: Home, Self-Care Condition: Stable Prescriptions: New chlordiazepoxide HCl 25 mg Capsule 25 mg PO DIRECTED Qty: 17 RF: 0 Thera 400 mcg Tablet 1 tab PO DAILY Qty: 30 RF: 0 lisinopril 5 mg Tablet 5 mg PO DAILY Qty: 30 RF: 0 cyanocobalamin (vitamin B-12) 2,000 mcg tablet 2,000 mcg PO DAILY Qty: 30 RF: 0 Protonix [address] for susp in packet 40 mg PO BID Qty: 60 RF: 0 folic acid 1 mg Tablet 1 mg PO DAILY Qty: 30 RF: 0 thiamine mononitrate (vit B1) [Vitamin B-1 (mononitrate)] 100 mg Tablet 100 mg PO DAILY Qty: 30 RF: 0 No Action No Known Home Medications RF: 0 Discharge Orders: Discharge Order (Routine); Ordered 03/06/20 Ordered By: Froilan Chu Other Ambulatory Orders: Complete Blood Count w/Auto (Routine) Timeframe: 2 Days Location: Determined by Patient Ordered By: Froilan Chu Referrals: Екатерина Leone FNP [Nurse Practitioner] - 4-7 days (Please call Saturday to set up a follow up appointment) Discharge Diet: Advance as tolerated Discharge Activity: Increase activity as tolerated Activity Restrictions/Additional Instructions: Please call your doctor or present to emergency department if your condition worsens or you develop diarrhea, lightheadedness, fatigue or see blood in your stool or black stool. Please follow recommendations of physical therapy to build your balance. Please take Librium as follows: Day 1: 2 tabs every 8 hour Day 2: 2 tabs every 12 hour Day 3: 1 tab every 8 hour Day 4: 1 tab every 12 hour Day 5 and Day 6: 1 tab at bedtime. Please discuss with your doctor if you want to consider inpatient rehabilitation. Please discuss with your primary care physician regarding TAPE EDGE MACHINE OPERATOR examination and vitamin B12 injections as part of anemia evaluation and treatment. Please call Dr. Roman's office tomorrow to set up EGD/colonoscopy for further evaluation of GI bleed which is likely secondary to alcohol induced gastritis and should get better with alcohol abstinence and Protonix. Discharge Attestations Time Spent in Discharge Care*: greater than 30 min Quality Metrics Clinical Quality Measures During this hospital stay, did patient experience: None Coding Level of Care Code Acute Rim Turning Finisher for Anup Martinez Diagnoses Acute upper GI bleed K92.2 Alcohol use disorder, moderate, in controlled environment, dependence F10.20 Frequent falls R29.6 Anxiety disorder F41.9 Anemia D64.9 Concern about peptic ulcer disease without diagnosis Z71.1 Vitamin B12 deficiency E53.8 Vitamin B12 deficiency E53.8
[2020-03-06 08:28] VITALS: BP 143/78; PULSE 83; RESP 16; TEMP 36.7; O2SAT 100
--- NOTE | 2020-03-06 09:41 | PC.NURSE ---
Discharge note Discharge was discussed with patient. This nurse educated patient on all medication adverse and side affects. IV was removed with catheter in tact. Patient tolerated well. Patient left the floor by wheelchair.
[2020-03-06 09:47] VITALS: BP 143/78; PULSE 83; RESP 16; TEMP 36.7; O2SAT 100
== END 2020-03-06 09:40 | disposition home or self-care (01) | DRG 379 ==
LOC: ER 10:37 → MEDSURG 11:35
PROVIDERS: Admitting Provider Internal Medicine; Emergency Provider Family Medicine; Family Provider Family Medicine; Visit Provider Internal Medicine
DX: K29.21 Alcoholic gastritis with bleeding (principal); D69.6 Thrombocytopenia, unspecified; D64.9 Anemia, unspecified; F10.20 Alcohol dependence, uncomplicated; E53.8 Deficiency of other specified B group vitamins; F41.9 Anxiety disorder, unspecified; Z91.81 History of falling; Z87.891 Personal history of nicotine dependence
CPT/HCPCS: 12345; 36415; 70450; 71045; 73501; 74177; 76705; 80053; 80307; 81001; 82140; 82274; 83605; 83690; 83735; 84100; 84443; 85025; 85730; 86705; 86706; 86709; 86803; 87040; 87340; 96372; 96375; 97110; 97116; 97161; 97530; 99283; C9113; J2060; J3411; J3420; J7030; J7799; Q9967

== ENCOUNTER 2020-03-21 06:09 | Day surgery (SDC) | payer OTHER, SELFPAY ==
[2020-03-18 11:57] VITALS: BMI 19.8
[2020-03-21 06:31] VITALS: BP 160/83; PULSE 80; RESP 18; TEMP 36.3; O2SAT 100
--- NOTE | 2020-03-21 06:38 | W.PM.OPSFHP ---
Same Day Surgery H&P Indication for Procedure/HPI DATE OF PROCEDURE: March 21, 2020 CHIEF COMPLAINT/INDICATIONFOR SURGICAL PROCEDURE: Blood in stool PREOP DIAGNOSIS: Bleeding per rectum PLANNED PROCEDRUE: Operation Date: 03/21/20 07:00 Proposed Procedures p [id number]/K92.1/D64.9(Not Applicable) - Markos Trent MD s Colonoscopy(Not Applicable) - Markos Trent MD Pleasant 59 years old female patient had history of chronic alcohol ingestion and has experienced blood in stool, patient was evaluated via telehealth visit about a week ago or so and after further evaluation I did discuss with her potential performance of diagnostic EGD and colonoscopy. Patient agreed to proceed and she did in fact stop alcohol intake she used to be a heavy drinker. Currently patient denies any other constitutional symptom ROS All systems have been reviewed negative except as for the above or per problem list Medications/Allergies* Allergies/Adverse Reactions Allergy/AdvReac Type Severity Reaction Status Date / Time Penicillins Allergy ALGY-Hives Verified 03/21/20 06:39 Pertinent History/Comorbid Conditions* Medical History (Updated 03/14/20 @ 12:26 by Markos Trent MD) Alcohol use disorder, moderate, in controlled environment, dependence Anxiety disorder Blood in stool Vitamin B12 deficiency Family History (Updated 03/14/20 @ 11:16 by Agatha Hernandez RN) Father, at age 95 from old age Mother, in her mid 50s Tuberculosis Mother Cancer Mother Nonalcoholic liver cancer due to hepatitis Denies family history of Anesthesia complication Bleeding disorder Social History Smoking and tobacco status: former smoker Second hand smoke exposure: Yes Alcohol intake: current Desire information about alcohol rehabilitation?: No Counseling given: Yes Lives independently: Yes Household members: spouse Marital status: Number of children: 3 Number of grandchildren: 2 Pertinent Exam Findings alert, oriented x 3, clear to auscultation bilaterally, regular rate & rhythm and procedure specific exam findings (Abdominal examination nontender nondistended soft no guarding or rigidity or peritonitis) Recommendations Surgery/Procedure today (After thorough history physical examination and reviewing the chart I did drug and alcohol counsellor the patient for diagnostic EGD and colonoscopy, informed consent per chart) Coding Level of Care Code Acute Slitter Cut Off Operator for wendy Martinez
--- NOTE | 2020-03-21 06:38 | ANES.PREANE2 ---
Pre-Anesthetic Assessment Pre-Anesthetic Assessment: Height/Weight: Height 1.65 m Weight 53.977 kg Temp Pulse Resp BP Pulse Ox 97.3 F L 80 18 160/83 100 03/21/20 06:31 03/21/20 06:31 03/21/20 06:31 03/21/20 06:31 03/21/20 06:31 Preop Diagnosis: Bleeding per rectum Proposed Procedure: Operation Date: 03/21/20 07:00 Proposed Procedures p [id number]/[id number](Not Applicable) - Markos Trent MD s Colonoscopy(Not Applicable) - Markos Trent MD Familial anesthetic complications: None Was Beta Eli taken within 24 hours: N/A Last intake: Intake Last Liquid Date 03/20/20 Last Liquid Time 11:00 Last Solid Date 03/19/20 Last Solid Time 18:00 Social: Social History: No alcohol and No tobacco Comment: former alcoholic until 2.5 weeks ago Exam: Pre-Anes Outpt Exam: alert, oriented x 3, clear to auscultation bilaterally and regular rate & rhythm Airway: Cervical ROM: WNL MP: 3 Additional comments: missing Pulmonary: Pulmonary: None reported CV/HEM: CV/HEM: HTN and None reported : : None reported Hepatic: Hepatic: None reported Comments: ? cirrhosis from drinking too much GI: GI: None reported Metabolic: Metabolic: None reported Musc/skel: Musc/skel: None reported Neuropsych: Neuropsych: Neuropathy Anesthetic Plan: ASA status: 3 Anesthesia: MAC Risk of > 500 ml blood loss (7ml/kg in children): No PFSH Anesthesia PFSH: Social History Smoking and tobacco status: former smoker Second hand smoke exposure: Yes Alcohol intake: current Desire information about alcohol rehabilitation?: No Counseling given: Yes Lives independently: Yes Household members: spouse Marital status: Number of children: 3 Number of grandchildren: 2 Data Anesthesia Cardiac Studies: No Data to Display
[2020-03-21] MEDS: sodium chloride 0.9% 1,000 ML 30 ML IV (06:40)
--- NOTE | 2020-03-21 07:23 | SUR.OPER ---
6ml epi mixture injected at distal duodenum
[2020-03-21 07:39] VITALS: BP 168/85; PULSE 69; RESP 12; TEMP 36.1; O2SAT 100
--- NOTE | 2020-03-21 07:44 | ANE.PACU2 ---
 Inpatient post-anesthesia follow up: Airway intact: Yes Vital signs: Temperature 97.3 F Pulse Rate 80 Respiratory Rate 18 Blood Pressure 160/83 Pulse Oximetry 100 Oxygen Delivery Me thod Room Air Oxygen Flow Rate Fraction of Inspir ed Oxygen Hydration adequate: Yes Nausea and vomiting: No Pain level: 1 Mental status: Baseline
[2020-03-21 07:55] VITALS: BP 177/89; PULSE 70; RESP 18; O2SAT 100
[2020-03-22 06:48] LABS: H. Pylori / CLO Test Negative
== END 2020-03-21 08:30 | disposition home or self-care (01) ==
PROVIDERS: Family Provider Family Medicine; Visit Provider Surgery
PROC: 0DJ08ZZ Inspection of Upper Intestinal Tract, Via Natural or Artificial Opening Endoscopic (ICD-10-PCS; CPT 43235; principal; 2020-03-21 07:00)
PROC: 0DJD8ZZ Inspection of Lower Intestinal Tract, Via Natural or Artificial Opening Endoscopic (ICD-10-PCS; CPT 45378; 2020-03-21 07:00)
DX: K92.1 Melena (principal); K44.9 Diaphragmatic hernia without obstruction or gangrene; K29.70 Gastritis, unspecified, without bleeding; K25.3 Acute gastric ulcer without hemorrhage or perforation; Z87.891 Personal history of nicotine dependence; I10 Essential (primary) hypertension
CPT/HCPCS: 43239; 45378; 12345; 87077; J2001; J2704; J7030

== ENCOUNTER 2020-05-04 06:15 | Day surgery (SDC) | payer OTHER, SELFPAY ==
[2020-05-04 06:23] VITALS: BP 143/83; PULSE 73; TEMP 36.6; O2SAT 99
--- NOTE | 2020-05-04 06:30 | W.PM.OPSFHP ---
Same Day Surgery H&P Indication for Procedure/HPI DATE OF PROCEDURE: May 04, 2020 CHIEF COMPLAINT/INDICATIONFOR SURGICAL PROCEDURE: Overall I feel better PREOP DIAGNOSIS: History of duodenal ulcer PLANNED PROCEDRUE: Operation Date: 05/04/20 07:00 Proposed Procedures p EGD 56368 Z87.19(Not Applicable) - Markos Trent MD This is a pleasant 59 years old female patient was evaluated before and undergone EGD and colonoscopy and was found to have a duodenal ulcer, patient comes today for diagnostic EGD is a repeat one to check on the ulcer and make sure it is healing, patient has been compliant with PPI therapy and Carafate, yet she reports today that she is out of PPI. ROS All systems have been reviewed negative except as per the above or per problem list Medications/Allergies* Allergies/Adverse Reactions Allergy/AdvReac Type Severity Reaction Status Date / Time Penicillins Allergy ALGY-Hives Verified 05/04/20 06:31 Pertinent History/Comorbid Conditions* Medical History (Updated 03/31/20 @ 10:55 by Markos Trent MD) Alcohol use disorder, moderate, in controlled environment, dependence Anxiety disorder Blood in stool Fatty liver Vitamin B12 deficiency Surgical History (Updated 03/31/20 @ 10:52 by Markos Trent MD) H/O dilation and curettage History of colonoscopy (~02/2020) History of esophagogastroduodenoscopy (EGD) (~02/2020) Family History (Updated 03/14/20 @ 11:16 by Agatha Hernandez RN) Father, at age 95 from old age Mother, in her mid 50s Tuberculosis Mother Cancer Mother Nonalcoholic liver cancer due to hepatitis Denies family history of Anesthesia complication Bleeding disorder Social History Smoking and tobacco status: former smoker Second hand smoke exposure: Yes Alcohol intake: current Desire information about alcohol rehabilitation?: No Counseling given: Yes Lives independently: Yes Household members: spouse Marital status: Number of children: 3 Number of grandchildren: 2 Pertinent Exam Findings alert, oriented x 3, clear to auscultation bilaterally, regular rate & rhythm and procedure specific exam findings (Abdominal exam nontender nondistended soft) Recommendations Surgery/Procedure today (Diagnostic EGD/informed consent per chart) Coding Level of Care Code Acute Large Animal Veterinarian for wendy Martinez
[2020-05-04] MEDS: sodium chloride 0.9% 1,000 ML 30 ML IV (06:37)
--- NOTE | 2020-05-04 06:46 | ANES.PREANE2 ---
Pre-Anesthetic Assessment Pre-Anesthetic Assessment: Height/Weight: Height 1.65 m Weight 54.431 kg Temp Pulse BP Pulse Ox 97.9 F 73 143/83 99 05/04/20 06:23 05/04/20 06:23 05/04/20 06:23 05/04/20 06:23 Preop Diagnosis: History of duodenal ulcer Proposed Procedure: Operation Date: 05/04/20 07:00 Proposed Procedures p EGD 67174 Z87.19(Not Applicable) - Markos Trent MD Last intake: Intake Last Liquid Date 05/03/20 Last Liquid Time 22:00 Last Solid Date 05/03/20 Last Solid Time 22:00 Social: Social History: Alcohol, No alcohol and No tobacco Exam: Pre-Anes Outpt Exam: alert Airway: Submandibular: WNL Cervical ROM: WNL MP: 2 History/ROS: No significant history except as noted Pulmonary: Pulmonary: None reported CV/HEM: CV/HEM: HTN : : None reported Hepatic: Hepatic: None reported GI: GI: None reported Metabolic: Metabolic: None reported Musc/skel: Musc/skel: None reported Neuropsych: Neuropsych: None reported Anesthetic Plan: ASA status: 2 Anesthesia: MAC Meds/Allergies Current Medications: Current Medications Generic Name Dose Route Start Last Admin Trade Name Freq PRN Reason Stop Dose Admin Sodium Chloride 1,000 mls @ 30 ml s/hr 05/04/20 06:15 05/04/20 06:37 Sodium Chloride 0.9% IV 30 mls/hr .Q24H ISABELLA Administration PFSH Anesthesia PFSH: Medical History (Updated 03/31/20 @ 10:55 by Markos Trent MD) Alcohol use disorder, moderate, in controlled environment, dependence Anxiety disorder Blood in stool Fatty liver Vitamin B12 deficiency Surgical History H/O dilation and curettage History of colonoscopy (~02/2020) History of esophagogastroduodenoscopy (EGD) (~02/2020) Family History Mother , in her mid 50s Cancer Nonalcoholic liver cancer due to hepatitis Tuberculosis Father , at age 95 from old age No problems noted. Denies family history of Anesthesia complication Bleeding disorder Social History Smoking and tobacco status: former smoker Second hand smoke exposure: Yes Alcohol intake: current Desire information about alcohol rehabilitation?: No Counseling given: Yes Lives independently: Yes Household members: spouse Marital status: Number of children: 3 Number of grandchildren: 2 Data Anesthesia Cardiac Studies: No Data to Display
[2020-05-04 07:21] VITALS: BP 153/79; PULSE 71; RESP 18; TEMP 36.2; O2SAT 100
[2020-05-04 07:37] VITALS: BP 129/79; PULSE 67; RESP 16; O2SAT 99
[2020-05-09 06:49] LABS: H. Pylori / CLO Test Negative
== END 2020-05-04 07:46 | disposition home or self-care (01) ==
PROVIDERS: Visit Provider Surgery
PROC: 0DJ08ZZ Inspection of Upper Intestinal Tract, Via Natural or Artificial Opening Endoscopic (ICD-10-PCS; CPT 43235; principal; 2020-05-04 07:00)
DX: Z87.19 Personal history of other diseases of the digestive system (principal); K29.70 Gastritis, unspecified, without bleeding; K56.699 Other intestinal obstruction unspecified as to partial versus complete obstruction; I10 Essential (primary) hypertension; F41.9 Anxiety disorder, unspecified; Z87.891 Personal history of nicotine dependence
CPT/HCPCS: 12345; 43239; 87077; J2704; J7030

== ENCOUNTER 2020-05-26 09:58 | Outpatient (CLI) | payer OTHER, SELFPAY ==
--- NOTE | 2020-05-26 10:45 | FL_ITS ---
WS: [id number] UPPER GI WITH AIR TECHNICAL: Double contrast upper GI. FLUOROSCOPY TIME: 3.4 minutes CLINICAL INFORMATION: R10.9 Unspecified abdominal pain. History of ulcer on endoscopy. COMPARISON: None. FINDINGS: Swallowing: Normal. Esophagus: Normal caliber and motility. Gastroesophageal reflux: Tiny amount on the supine imaging Stomach: Double contrast stomach appears unremarkable. No visualized gastric ulceration. Duodenum: Proximal duodenum is normal. Other findings: Mild lumbar curve convex left. FL/FL upper GI w air* [id number] IMPRESSION: 1. Normal gastroesophageal junction. No esophageal hiatal hernia. Tiny amount of reflux in the supine imaging. 2. Double contrast stomach and duodenum are normal.
== END 2020-05-26 09:59 | disposition home or self-care (01) ==
LOC: RAD 10:02
PROVIDERS: Visit Provider Surgery
DX: R10.9 Unspecified abdominal pain (principal); Z87.19 Personal history of other diseases of the digestive system
CPT/HCPCS: 74246